=== PATIENT | male | born 1955 ===

== ENCOUNTER 2019-03-05 18:56 | Emergency (ER) | payer SELFPAY ==
[2019-03-05] MEDS ORDERED: Clindamycin 150 MG CAP ONE (19:19)
== END 2019-03-05 19:30 | disposition home or self-care (01) ==
LOC: BURERS 18:56
DX: L03.116 Cellulitis of left lower limb (principal); K21.9 Gastro-esophageal reflux disease without esophagitis; F17.210 Nicotine dependence, cigarettes, uncomplicated
CPT/HCPCS: 99283